=== PATIENT | female | born 1970 | race Asian ===

== ENCOUNTER 2023-07-24 15:19 | Outpatient (CLI) | payer BC, SELFPAY ==
--- NOTE | ~2023-07-24 | MM_ITS ---
EXAMINATION: MM screening [facility] BI w mirian HISTORY: Screening mammogram TECHNIQUE: Craniocaudal and mediolateral oblique 3-D tomosynthesis images were obtained and synthetic 2-D images were generated. CAD analysis was submitted and interpreted. COMPARISON: 07/25/2016 BREAST PARENCHYMAL COMPOSITION: The breasts are heterogeneously dense, which may obscure small masses . FINDINGS: There is suggestion of an approximately 6 mm mass in the central right breast approximately 2 cm deep to the nipple on MLO view (MLO Tomosynthesis image 37/66). This is not confirmed on the cr aniocaudal views. Diagnostic right mammogram, with ultrasound if required. Otherwise no suspicious mass, architectural distortion, malignant calcification, skin thickening or r etraction of either breast is detected. IMPRESSION: 1. Questionable mass in central right breast 2. Diagnostic right mammogram is recommended, with ultrasound if required BI-RADS Category 0: Incomplete: Needs additional imaging evaluation. Reviewed, dictated and finalized at location A.
== END 2023-07-24 15:20 ==
LOC: MICIMG 15:22
PROVIDERS: PCP Nurse Practitioner Women's Health; Visit Provider Nurse Practitioner Women's Health
DX: Z12.31 Encounter for screening mammogram for malignant neoplasm of breast (principal); R92.8 Other abnormal and inconclusive findings on diagnostic imaging of breast
CPT/HCPCS: 77063; 77067

== ENCOUNTER 2023-08-01 10:18 | Outpatient (CLI) | payer BC, SELFPAY ==
--- NOTE | ~2023-08-01 | MMUS_ITS ---
EXAMINATION: MM diagnostic jenn RT w mirian, US breast RT complete HISTORY: Questionable central right breast mass on July 24, 2023 screening mammogram TECHNIQUE: Additional 3-D tomosynthesis images of the right breast were performed and synthetic 2-D i mages were generated. CAD analysis was submitted and interpreted. High resolution complete right pat st ultrasound examination including all 4 quadrants and subareolar area was performed. COMPARISON: None FINDINGS: MAMMOGRAPHIC FINDINGS: Approximate 5 x 8 mm circumscribed masses noted anteriorly in the mid upper inner right breast, best demonstrated on craniocaudal, tomosynthesis spot image 21/43. No suspicious mass or architectural distortion, malignant calcification, skin thickening or retractio n is noted otherwise. ULTRASOUND: There is a corresponding oval parallel hypoechoic solid lesion measuring approximately 8.3 x 5.7 x 4. 7 mm at 1:00 near the nipple, with prominent adjacent vessel. The margins are irregular. Ultrasound-g uided biopsy is recommended. No other suspicious mass is noted. IMPRESSION: 1. Irregular solid 8.3 mm mass at 1:00 nipple 2. Sinogram biopsy of right breast 1:00 lesion near nipple is recommended BI-RADS category 4, suspicious findings. Document telephoned report and ultrasound guided biopsy recommendation for right breast 1:00 lesion u nder nipple on August 01, [address] Ponce. Reviewed, dictated and finalized at location A. IMPRESSION: 1. Irregular solid 8.3 mm mass at 1:00 nipple 2. Sinogram biopsy of right breast 1:00 lesion near nipple is recommended BI-RADS category 4, suspicious findings. Document telephoned report and ultrasound guided biopsy recommendation for righ t breast 1:00 lesion under nipple on August 01, [address] Florentino hilario IMPRESSION: 1. Irregular solid 8.3 mm mass at 1:00 nipple 2. Sinogram biopsy of right breast 1:00 lesion near nipple is recommended BI-RADS category 4, suspicious findings. Document telephoned report and ultrasound guided biopsy recommendation for [facility] t breast 1:00 lesion under nipple on August 01, [address] Florentino hilario
== END 2023-08-01 10:19 | disposition home or self-care (01) ==
LOC: CHSIMG 10:20
PROVIDERS: Visit Provider Obstetrics & Gynecology Gynecology
DX: R92.8 Other abnormal and inconclusive findings on diagnostic imaging of breast (principal)
CPT/HCPCS: 76641; 77061; 77065; G0279